=== PATIENT | male | born 1970 | race Caucasian/White ===

== ENCOUNTER 2019-05-16 17:57 | Emergency (ER) | payer OTHER ==
[~2019-05-16] VITALS: Ht 175.3 cm; Wt 110.2 kg
[2019-05-16 18:25] VITALS: Ht 175.3 cm; Wt 110.2 kg
[2019-05-16 20:16] LABS: CALCIUM 8.9 mg/dL (8.5-10.1); CARBON DIOXIDE 26.4 mmol/L (21-32); CHLORIDE SERUM 103 mmol/L (98-107); GFR1 > 60 mL/min; GLUCOSE SERUM 138 mg/dL (74-106); POTASSIUM SERUM 3.7 mmol/L (3.5-5.1); SODIUM SERUM 139 mmol/L (136-145)
[2019-05-16 20:22] LABS: ALBUMIN 3.7 g/dL (3.4-5.0); ALKALINE PHOSPHATASE 75 U/L (46-116); ALT/SGPT 18 U/L (16-63); AST/SGOT 12 U/L (15-37); BILIRUBIN TOTAL 0.4 mg/dL (0.20-1.00); TOTAL PROTEIN, SERUM 7.8 g/dL (6.4-8.2)
[2019-05-16 20:33] LABS: RED CELL DISTRIBUTION WIDTH 22.6 % (11.5-14.5)
[2019-05-16 20:56] LABS: BAND NEUTROPHIL 1 % (0-10); BASOPHIL 0 % (0-2); MONOCYTE 2 % (0-7); SEGMENTED NEUTROPHILS 58 % (37-75); rbc morphology (normal/abnorm) ABNORMAL (NORMAL)
[2019-05-16 20:57] LABS: PLATELET COUNT 535 x10^3mcL (130-400)
[2019-05-16] MEDS ORDERED: GLUCOPHAGE1000 MG PO (21:51)
[2019-05-16] MEDS ORDERED: INVOKANA100 MG PO (21:52)
[2019-05-16] MEDS ORDERED: PRAVASTATIN SOD40 M1 PO (21:53)
[2019-05-16] MEDS ORDERED: BENAZEPRIL HYDR40 M1 PO (21:54)
[2019-05-16] MEDS ORDERED: ZYRTEC10 MG PO (21:55)
[2019-05-16] MEDS ORDERED: FOLGARD1 TAB PO (21:57)
[2019-05-17 01:14] VITALS: BP 113/68
== END 2019-05-17 01:14 | disposition short-term general hospital (02) ==
LOC: ED 17:57
PROVIDERS: Specialist
DX: D64.9 Anemia, unspecified (principal); E11.9 Type 2 diabetes mellitus without complications; I10 Essential (primary) hypertension; E78.00 Pure hypercholesterolemia, unspecified; Z88.0 Allergy status to penicillin
CPT/HCPCS: 36415